=== PATIENT | female | born 1975 | race Asian ===

== ENCOUNTER 2019-04-27 20:02 | Emergency (ER) | payer OTHER ==
[~2019-04-27] VITALS: Ht 175.3 cm; Wt 86.2 kg
[2019-04-27 20:10] VITALS: TEMP 99.7
[2019-04-27 21:50] VITALS: BP 157/97
== END 2019-04-27 21:50 | disposition home or self-care (01) ==
LOC: ED 20:02
DX: J30.9 Allergic rhinitis, unspecified (principal); J06.9 Acute upper respiratory infection, unspecified; R05 Cough
CPT/HCPCS: 87502; 87651; 99283

== ENCOUNTER 2019-11-10 20:42 | Emergency (ER) | payer OTHER ==
[~2019-11-10] VITALS: Ht 175.3 cm; Wt 88.9 kg
[2019-11-10 21:24] LABS: POTASSIUM 3.9 mmol/L (3.6-5.2)
[2019-11-10 21:27] LABS: PLATELET COUNT 329 K/uL (152-353)
[2019-11-11 00:21] VITALS: BP 150/94; TEMP 98.6
== END 2019-11-11 00:21 | disposition home or self-care (01) ==
LOC: ED 20:42
PROVIDERS: Emergency Medicine
DX: N23 Unspecified renal colic (principal); Z20.828 Contact with and (suspected) exposure to other viral communicable diseases
CPT/HCPCS: 36415; 80053; 81000; 81025; 82150; 83690; 85027; 87635; 96374; 99284; J1885; Q9963; U0003

== ENCOUNTER 2020-02-12 09:57 | Outpatient (CLI) | payer OTHER | END 2020-02-12 19:03 | disposition home or self-care (01) | LOC: US 09:57 | DX: R22.2 Localized swelling, mass and lump, trunk (principal) ==

== ENCOUNTER 2020-04-02 10:07 | Day surgery (SDC) | payer OTHER ==
[2020-03-26 09:29] LABS: PLATELET COUNT 259 K/uL (152-353)
== END 2020-04-02 13:45 | disposition home or self-care (01) ==
LOC: OR 10:07
PROVIDERS: ATTEND Internal Medicine Gastroenterology
PROC: 0DBP8ZZ Excision of Rectum, Via Natural or Artificial Opening Endoscopic (ICD-10-PCS; principal; 2020-04-02)
DX: K62.1 Rectal polyp (principal); K64.8 Other hemorrhoids; K92.1 Melena
CPT/HCPCS: 80053; 85027; J2704

== ENCOUNTER 2021-04-16 13:01 | Emergency (ER) | payer OTHER ==
[~2021-04-16] VITALS: Ht 175.3 cm; Wt 87.5 kg
[2021-04-16 13:07] VITALS: TEMP 98.4
[2021-04-16 14:35] VITALS: BP 167/96
== END 2021-04-16 14:35 | disposition home or self-care (01) ==
LOC: ED 13:01
DX: I10 Essential (primary) hypertension (principal); Z91.14 Patient's other noncompliance with medication regimen; R51.9 Headache, unspecified
CPT/HCPCS: 99283

== ENCOUNTER 2022-02-09 18:31 | Emergency (ER) | payer OTHER ==
[~2022-02-09] VITALS: Ht 175.3 cm; Wt 87.5 kg
[2022-02-09 20:08] LABS: POTASSIUM 3.7 mmol/L (3.6-5.2)
[2022-02-09] MEDS ORDERED: LISITAB PO (20:22)
[2022-02-09] MEDS ORDERED: MOBIC7.5 M1 PO (20:22)
[2022-02-09 20:53] VITALS: BP 176/100; TEMP 98.7
== END 2022-02-09 20:53 | disposition home or self-care (01) ==
LOC: ED 18:31
PROVIDERS: Emergency Medicine
DX: M72.2 Plantar fascial fibromatosis (principal); I10 Essential (primary) hypertension
CPT/HCPCS: 36415; 80048; 96372; 99283; J1885